=== PATIENT | female | born 1965 | race Caucasian/White ===

== ENCOUNTER 2019-04-18 17:46 | Emergency (ER) | payer BC, SELFPAY ==
--- NOTE | 2019-04-18 17:50 | ED.GENADULT ---
HPI - General Adult General Chief complaint: Upper Respiratory Infection Stated complaint: BREWER/CONGESTED/COUGH Time Seen by Provider: 04/18/19 18:01 Source: patient Mode of arrival: ambulatory Limitations: no limitations History of Present Illness HPI narrative: 53-year-old female patient presents to the [facility] with complaints of cold symptoms for the past 2 days. Patient states that she did not get a flu shot this year. Patient states she has had a cough and coughing up some clear and yellow sputum. Patient states she has been very congested to the nose. Denies any fevers that she is aware of. Patient states she has been taking [id number] Mucinex and Advil for her symptoms. Patient denies any chest pain or shortness of breath at this time. Related Data Home Medications Medication Instructions Recorded Confirmed amlodipine 5 mg PO DAILY 04/18/19 04/18/19 metoprolol tartrate 50 mg PO DAILY 04/18/19 04/18/19 triamterene-hydrochlorothiazid 1 tablet PO DAILY 04/18/19 04/18/19 Allergies Allergy/AdvReac Type Severity Reaction Status Date / Time silver nitrate Allergy Intermediate Verified 04/20/16 18:47 Sulfa (Sulfonamide Allergy Intermediate Verified 04/20/16 18:47 Antibiotics) azithromycin Allergy Unknown SWELLING Verified 04/20/16 18:47 AND RASH Penicillins Allergy Unknown RESP. Verified 04/20/16 18:47 DISTRESS SURGICAL GLUE Allergy Mild Uncoded 08/16/13 12:48 Review of Systems Review of Systems: Narrative: CONSTITUTIONAL: Denies fever, chills, or sweats. EYES: Denies visual changes, redness, or discharge. ENT: Positive rhinorrhea, congestion, denies sore throat, or otalgia. CARDIOVASCULAR: Denies chest pain, palpitations, or edema. RESPIRATORY: Positive cough, denies dyspnea. GASTROINTESTINAL: Denies abdominal pain, nausea, vomiting, or diarrhea. GENITOURINARY: Denies dysuria or hematuria. SKIN: Denies rash or itching. MUSCULOSKELETAL: Denies back pain, joint pain, or myalgia. NEUROLOGIC: Positive headache, numbness, or weakness. PSYCHIATRIC: Denies anxiety or depression. [facility] Past Medical History Medical History (Updated 04/18/19 @ 18:11 by MARIA LUISA Mckee) Hypertension Surgical History Surgical History (Updated 04/18/19 @ 17:52 by KELSEA Mckee H/O Spinal surgery C6 and C7 fusion H/O: hysterectomy Comments At the time of my signature I agree with nursing past medical history, surgical, social, and family history. There is no relevant family history pertinent to the presenting complaint. Exam Narrative: Exam Narrative: GENERAL: Well-appearing, well-nourished, and in no acute distress. HEAD: Normocephalic, atraumatic. Slight tenderness noted to maxillary sinuses on palpation. EYES: PERRLA and EOMI. ENT: Nares with erythema and edema noted bilaterally with the right nare swollen shut., no rhinorrhea or epistaxis. Mucous membranes moist. Posterior pharynx with no erythema, tonsillar margin, exudates or lesions present. Bilateral TMs are clear no erythema or foreign bodies in the canal. There is slight fluid noted behind the right TM. NECK: Supple. No lymphadenopathy CHEST: Clear to auscultation. No respiratory distress. Patient able talk in clear complete sentences. No tripoding noted. HEART: Regular rate and rhythm. No murmur heard. Normal peripheral pulses. ABDOMEN: Soft, nontender, nondistended, normal active bowel sounds. EXTREMITIES: Normal range of motion. No edema. SKIN: Warm, dry, no rash. NEURO: No focal deficits. Alert and oriented x3. Course Reevaluation(s) Reevaluation #1: Notify patient she has negative today for influenza. Discussed with her that this does appear to be some sinus drainage is most likely viral since she is only had this for about 2 days. Discussed with her that she needs to try some symptomatic treatment including nasal steroid, daily antihistamine and Tessalon Perles that were prescribed to her today. Discussed with patient
[2019-04-18 18:01] VITALS: BP 150/82; PULSE 78; RESP 20; TEMP 37.5; O2SAT 100
== END 2019-04-18 18:14 | disposition home or self-care (01) ==
PROVIDERS: Emergency Provider Nurse Practitioner Family; PCP Internal Medicine
DX: J06.9 Acute upper respiratory infection, unspecified (principal); R05 Cough; I10 Essential (primary) hypertension; I20.9 Angina pectoris, unspecified
CPT/HCPCS: 87804; 99213; G0463

== ENCOUNTER → 2020-06-16 08:05 | Outpatient (REF) | payer BC, SELFPAY | LOC: ANHLAB 08:05 | PROVIDERS: PCP Internal Medicine; Visit Provider Nurse Practitioner | DX: C44.02 Squamous cell carcinoma of skin of lip (principal) | CPT/HCPCS: 88305; 88331 ==

== ENCOUNTER 2023-05-07 00:23 | Emergency (ER) | payer BC, SELFPAY ==
[2023-05-07] VITALS (28 sets, daily range): BP systolic 106–173; BP diastolic 55–110; PULSE 65–102; RESP 12–21; TEMP 37.1; O2SAT 92–99
--- NOTE | ~2023-05-07 | XR_ITS ---
EXAMINATION: XR chest 1V portable DATE: 05/07/2023 00:35 INDICATION: Right chest pain. TECHNIQUE: A single frontal view of the chest was obtained. COMPARISON: None. FINDINGS: There is no pneumonia, pleural effusion, or pneumothorax. The heart size is normal. There a re changes of anterior fusion procedure in cervical spine. IMPRESSION: 1. No acute cardiopulmonary disease. Reviewed, dictated and finalized at location A. RACT MAKER
--- NOTE | 2023-05-07 00:27 | ECG_ITS ---
Measurements Intervals [place] Rate: 96 P: 42 CA: 136 QRS: -5 QRSD: 158 T: 113 QT: 388 QTc: 492 Interpretive Statements SINUS RHYTHM POSSIBLE LEFT ATRIAL ENLARGEMENT LEFT BUNDLE BRANCH BLOCK BASELINE ARTIFACT- I, II, III, AVL ABNORMAL ECG NO PREVIOUS ECG AVAILABLE FOR COMPARISON Electronically Signed On 05-07-2023 9:02:44 FINAL INSPECTION SUPERVISOR by Holger Riggs D.O.
[2023-05-07 00:42] LABS: Basophils Percent Auto 0.4 % (0.2-1.2); Eosinophils Absolute Auto 0.1 K/mm3 (0-0.3); Eosinophils Percent Auto 0.7 % (0-4.4); Hematocrit 37.6 % (37.0-47.0); Hemoglobin 11.6 g/dL (12.0-15.0); Immature Granulocyte Absolute 0.05 K/mm3 (0.00-0.031); Immature Granulocyte Percent A 0.5 % (0-0.5); Immature Platelet Fraction Pct 5.5 % (0.9-11.2); Lymphocytes Absolute Auto 3.13 K/mm3 (0.9-3.2); Lymphocytes Percent Auto 33.3 % (18.3-44.2); Mean Corpuscular HGB Conc 30.9 g/dl (32-36); Mean Corpuscular Hemoglobin 19.5 pg (26-34); Mean Corpuscular Volume 63.1 fl (80-100); Monocytes Absolute Auto 0.5 K/mm3 (0.1-0.6); Monocytes Percent Auto 5.5 % (2.6-8.5); Neutrophils Absolute Auto 5.6 K/mm3 (1.3-6.7); Neutrophils Percent Auto 59.6 % (45.5-73.1); Platelet Count Result 169 k/mm3 (150-375); Red Blood Count 5.96 M/mm3 (4.2-5.4); Red Cell Distribution Width 17.6 % (11.5-14.5); White Blood Count 9.4 K/mm3 (4.5-10.0)
[2023-05-07 00:48] LABS: Alanine Aminotransferase 29 U/L (6-35); Albumin Level 4.6 g/dL (3.5-5.1); Alkaline Phosphatase 107 U/L (38-126); Anion Gap 10 mmol/L (8-16); Aspartate Amino Transferase 33 U/L (14-36); Bilirubin,Total 1.2 mg/dL (0.2-1.3); Blood Urea Nitrogen 15 mg/dL (7-17); Calcium 9.3 mg/dL (8.4-10.2); Carbon Dioxide 24 mmol/L (22-30); Chloride 105 mmol/L (98-107); Estimated CRCL calculation 83 ml/min; Estimated Glomerular Filt Rate > 60; Glucose 142 mg/dL (65-110); Lipase 191 U/L (23-300); Potassium 3.5 mmol/L (3.4-5.0); Sodium 139 mmol/L (137-145)
[2023-05-07] MEDS: ONDANSETRON INJ 4 MG/2 ML VIAL IV PUSH (00:50)
[2023-05-07] MEDS: NITROGLYCERIN SL 0.4 MG TABLET SUBLINGUAL (00:50)
[2023-05-07] MEDS: MORPHINE SULFATE (*CRX) 4 MG/ML INJ IV PUSH ×2 (00:51→01:23)
--- NOTE | 2023-05-07 00:52 | PC.NURSE ---
0049 patient given first nitro, CP /10, BP: 149/83, P:118, RR: 22, and SPO2 96% NC 2L/min 0054 CP /, BP:147/80 , P: 112, RR: 18, SPO2 96% NC 2L/min
[2023-05-07 01:00] LABS: Troponin I < 0.012 ng/mL (0.000-0.034)
[2023-05-07 01:06] LABS: Prothrombin Time 13.7 Seconds (11.1-14.7)
[2023-05-07 01:07] LABS: Partial Thromboplastin Time 33.8 SECONDS (22.3-36.8)
[2023-05-07 01:22] LABS: Microcytosis 2+ (NORMAL); Tear Drop Cells 2+ (NORMAL)
[2023-05-07 01:23] LABS: Schistocytes Rare (NORMAL)
[2023-05-07] MEDS: NITROGLYCERIN OINTMENT 1 INCH DOSE TRANSDERM (01:24)
[2023-05-07 01:41] LABS: Platelet Estimate Adequate (Adequate)
--- NOTE | 2023-05-07 03:16 | ECG_ITS ---
Measurements Intervals [place] Rate: 77 P: 48 ND: 161 QRS: -16 QRSD: 153 T: 97 QT: 443 QTc: 501 Interpretive Statements SINUS RHYTHM POSSIBLE LEFT ATRIAL ENLARGEMENT LEFT BUNDLE BRANCH BLOCK BASELINE ARTIFACT- I, III, AVL ABNORMAL ECG COMPARED TO ECG 05/07/2023 00:25:46 NO SIGNIFICANT CHANGES Electronically Signed On 05-07-2023 9:06:22 NURSE INTERN by Holger Riggs D.O.
--- NOTE | 2023-05-07 03:35 | ED.GENADULT ---
HPI - General Adult General Chief complaint: Chest Pain Stated complaint: Right sided cp, sob Time Seen by Provider: 05/07/23 00:32 History of Present Illness HPI narrative: Patient is a 57-year-old female who presents emergency department with chief complaint of chest pain and shortness of breath. The patient states that she has had some sinus issues and reports that around 11:30 pm started feeling nausea patient reports she has history of leaky valve and history of an abnormal EKG. Related Data Home Medications Medication Instructions Recorded Confirmed amlodipine 5 mg tablet 5 mg PO DAILY 04/18/19 04/18/19 triamterene 37.5 1 tablet PO DAILY 04/18/19 04/18/19 mg-hydrochlorothiazide 25 mg tablet metoprolol tartrate 50 mg tablet 50 mg PO BID 06/16/20 Allergies Allergy/AdvReac Type Severity Reaction Status Date / Time azithromycin Allergy Severe Swelling Verified 06/16/20 08:02 of Lip/Tongue/Throat Penicillins Allergy Severe Swelling Verified 06/16/20 08:02 of Lip/Tongue/Throat silver nitrate Allergy Intermediate Other Verified 06/16/20 08:02 Sulfa (Sulfonamide Allergy Intermediate Hives Verified 06/16/20 08:02 Antibiotics) SURGICAL GLUE Allergy Mild Swelling Uncoded 06/16/20 08:02 Review of Systems Review of Systems: A 10 system review of systems was completed on the patient and is negative except for what is stated in the HPI. Nursing and ancillary documentation was reviewed. [facility] Past Medical History Medical History Hypertension Surgical History Surgical History H/O Spinal surgery C6 and C7 fusion H/O: hysterectomy Social History Social History Smoking status: Never smoker Alcohol intake: never Substance use: never Substance use type: does not use Exam Narrative: GENERAL: Well-appearing, well-nourished, and in no acute distress. HEAD: Normocephalic, atraumatic. EYES: PERRLA and EOMI. ENT: Nares clear, no rhinorrhea or epistaxis. Mucous membranes moist. NECK: Supple. CHEST: Clear to auscultation. No respiratory distress. HEART: Regular rate and rhythm. No murmur heard. Normal peripheral pulses. ABDOMEN: Soft, nontender, nondistended, normal active bowel sounds. EXTREMITIES: Normal range of motion. No edema. SKIN: Warm, dry, no rash. NEURO: No focal deficits. Alert and oriented x3. PSYCH: Normal mood and affect. Course Vital Signs Vital signs: Vital Signs Temperature 37.1 C 05/07/23 00:21 Pulse Rate 98 05/07/23 00:21 Respiratory Rate 13 05/07/23 00:21 Blood Pressure 173/110 H 05/07/23 00:21 Pulse Oximetry 98 05/07/23 00:21 Oxygen Delivery Nasal Cannula 05/07/23 00:21 Oxygen Flow Rate 2 05/07/23 00:21 Temperature 37.1 C 05/07/23 00:21 Pulse Rate 65 05/07/23 05:02 Respiratory Rate 12 05/07/23 05:02 Blood Pressure 122/62 05/07/23 05:02 Pulse Oximetry 94 05/07/23 05:02 Oxygen Delivery Nasal Cannula 05/07/23 00:33 Oxygen Flow Rate 2 05/07/23 00:33 Medical Decision Making [facility] Narrative Medical decision making narrative: Differential diagnosis includes ACS, pneumothorax, esophageal spasm, hypertensive urgency, EKG showed left bundle-branch block prior records were obtained from [facility] and the patient has a known left bundle branch block. White blood cell count was 9.4 electrolytes were within normal limits liver enzymes are normal lipase was normal troponin was negative and 0 hour and 3 hours. Chest x-ray showed no evidence of focal infiltrate Patient is feeling much better at this point and patient be discharged home follow up with her primary auger press operator Vital Signs Vital Signs: Vital Signs Temperature 37.1 C 05/07/23 00:21 Pulse Rate 98 05/07/23 00:21 Respiratory Rate 13
[2023-05-07 03:53] LABS: Troponin I < 0.012 ng/mL (0.000-0.034)
== END 2023-05-07 05:49 | disposition home or self-care (01) ==
PROVIDERS: Emergency Provider Emergency Medicine
DX: R07.89 Other chest pain (principal); I10 Essential (primary) hypertension; Z98.1 Arthrodesis status; Z90.710 Acquired absence of both cervix and uterus; I44.7 Left bundle-branch block, unspecified; R94.31 Abnormal electrocardiogram [ECG] [EKG]
CPT/HCPCS: 36415; 71045; 80053; 83690; 84484; 85025; 85055; 85610; 85730; 93005; 96374; 96375; 96376; 99284; A9270; J2270; J2405

== ENCOUNTER 2023-05-09 15:51 | Emergency (ER) | payer BC, SELFPAY ==
[2023-05-09 15:56] VITALS: BP 143/74; PULSE 73; RESP 16; TEMP 36.6; O2SAT 99
--- NOTE | 2023-05-09 16:01 | ED.URI ---
HPI - URI/Sore Throat General Chief Complaint: Upper Respiratory Infection Stated Complaint: Sore Throat, Headache, Fever, Cough, Congestion Time Seen by Provider: 05/09/23 16:01 Source: patient, RN notes reviewed and old records reviewed Mode of arrival: ambulatory Limitations: no limitations History of Present Illness HPI Narrative: 57 year old female who presents to express care with complaints of sore throat, fever, cough and congestion, body aches, joints aches, ear pain which started on . Patient reports that annita had fevers 99-100F intermittently since also. Patient reports some nausea but denies any vomiting or diarrhea.Patient reports that she was in the Ed on Tuesday night with chest pains and elevated blood pressure dischargd with 'normal' results MD elicited complaint: fever, cough, sore throat and other (headache, body aches, ear pain) Onset (ago): day(s) (4-5 days) Pain scale (0-10): 3 Able to tolerate fluids by mouth: Yes Treatments prior to arrival: acetaminophen, ibuprofen and other (Theraflu and Ricola cough drops) Related Data Home Medications Medication Instructions Recorded Confirmed amlodipine 5 mg tablet 5 mg PO DAILY 04/18/19 05/09/23 triamterene 37.5 1 tablet PO DAILY 04/18/19 05/09/23 mg-hydrochlorothiazide 25 mg tablet metoprolol tartrate 50 mg tablet 50 mg PO BID 06/16/20 05/09/23 Allergies Allergy/AdvReac Type Severity Reaction Status Date / Time azithromycin Allergy Severe Swelling Verified 05/09/23 15:55 of Lip/Tongue/Throat Penicillins Allergy Severe Swelling Verified 05/09/23 15:55 of Lip/Tongue/Throat silver nitrate AdvReac Mild Hives Verified 05/09/23 15:55 Sulfa (Sulfonamide AdvReac Mild Hives Verified 05/09/23 15:55 Antibiotics) SURGICAL GLUE AdvReac Mild Hives Uncoded 05/09/23 15:55 Review of Systems Review of Systems: CONSTITUTIONAL:Reports malaise, chills, sweats, or fever. EYES: Denies visual changes, redness, or discharge. ENT: Reports rhinorrhea, congestion, sinus pain, otalgia and sore throat. CARDIOVASCULAR: Denies chest pain, palpitations, or edema. RESPIRATORY: Reports cough.? Denies dyspnea. GASTROINTESTINAL: Denies abdominal pain, reports nausea, no vomiting, diarrhea SKIN: Denies rash or itching. MUSCULOSKELETAL:Reports myalgia. NEUROLOGIC:Reports headache. All systems reviewed & are unremarkable except as noted in HPI and below PMFSH Past Medical History Medical History (Updated 05/10/23 @ 14:07 by Pari Ornelas NP) Angina pectoris syndrome Anxiety Beta-thalassemia Bronchitis Hypertension Surgical History Surgical History (Updated 05/10/23 @ 14:03 by Pari Ornelas NP) H/O Spinal surgery C6 and C7 fusion H/O: hysterectomy Hx of eye surgery as child Social History Social History Smoking status: Never smoker Alcohol intake: never Substance use: never Substance use type: does not use Comments At time of signature, agree with nursing past medical, surgical, social and family history. There is no relevant family history pertinent to the presenting complaint Exam Narrative: GENERAL: Well-appearing, well-nourished, and in no acute distress. HEAD: Normocephalic EYES: PERRLA, conjunctivae clear ENT: Nares clear, turbinates edematous and erythematous, clear discharge. Mucous membranes moist. TM pearly camacho with dull light reflex bilaterally; no tragal tenderness. Oropharynx erythematous without lesions. Tonsils not enlarged and without exudate, no drooling, no hoarseness, no trismus, uvula midline.post nasal drainage NECK: Supple. No lymphadenopathy CHEST: Clear to auscultation, breath sounds equal. No wheezing, rhonchi, rales, or stridor. No respiratory distress, speaks in full sentences.no tachypnea SAO2 99% on room air HEART: Regular rate and rhythm. No murmur heard. SKIN: Warm, dry, no rash.
== END 2023-05-09 16:39 | disposition home or self-care (01) ==
PROVIDERS: Emergency Provider Registered Nurse
DX: J06.9 Acute upper respiratory infection, unspecified (principal); Z20.822 Contact with and (suspected) exposure to COVID-19; I10 Essential (primary) hypertension; D56.1 Beta thalassemia
CPT/HCPCS: 87081; 87426; 87804; 87880; 99213; G0463

== ENCOUNTER 2024-05-22 17:54 | Emergency (ER) | payer BC, SELFPAY ==
--- NOTE | ~2024-05-22 | XR_ITS ---
Exam: Abdomen 1V HISTORY: right flank pain r/o kidney stone/constipation COMPARISON: None. TECHNIQUE: Supine images of the abdomen FINDINGS: Bowel gas pattern is non-obstructive. Fecal stasis within the ascending colon and rectum. There is no free air or deep sulci. No pathologic calcifications are seen. Bones and soft tissues are unremarkable. IMPRESSION: Nonspecific, nonobstructive bowel gas pattern. No pathologic calcifications are appreciated. Reviewed, dictated and finalized at location A.
--- NOTE | 2024-05-22 17:59 | ED.FEMALEGU ---
HPI - Female Genitourinary General Chief complaint: Urogenital-Female Stated complaint: possible UTI Time Seen by Provider: 05/22/24 18:05 Source: patient Mode of arrival: ambulatory Limitations: no limitations History of Present Illness HPI Narrative: Kusum is a 58-year-old female patient presenting to the clinic today with complaints of possible urinary tract infection x2 days. She reports she is having burning with urination, frequency, and flank pain bilaterally right worse than left thumb. States the pain is constant/achy. Currently rates her pain 7 at 10. Has had some associated diarrhea and nausea over the past week. No history of constipation. Has had history of kidney stones in the past. Last bowel movement was yesterday Related Data Home Medications ?Medication ?Instructions ?Recorded ?Confirmed ?Last Taken ?Type amlodipine 5 mg tablet 5 mg PO DAILY 04/18/19 05/09/23 Unknown History triamterene 37.5 1 tablet PO DAILY 04/18/19 05/09/23 Unknown History mg-hydrochlorothiazide 25 mg tablet metoprolol tartrate 50 mg tablet 50 mg PO BID 06/16/20 05/09/23 Unknown History Allergies Allergy/AdvReac Type Severity Reaction Status Date / Time azithromycin Allergy Severe Swelling Verified 05/22/24 18:10 of Lip/Tongue/Throat Penicillins Allergy Severe Swelling Verified 05/22/24 18:10 of Lip/Tongue/Throat silver nitrate AdvReac Mild Hives Verified 05/22/24 18:10 Sulfa (Sulfonamide AdvReac Mild Hives Verified 05/22/24 18:10 Antibiotics) SURGICAL GLUE AdvReac Mild Hives Uncoded 05/22/24 18:10 Review of Systems Review of Systems: Pertinent positives per HPI. Patient denies any fever, chills, rash, headache, visual changes, dizziness, cough, runny nose, sore throat, shortness of breath, chest pain, palpitations,vomiting, constipation PMFSH Past Medical History Medical History (Updated 05/22/24 @ 18:40 by Freedom Narayanan APRN) Bronchitis Beta-thalassemia Anxiety Angina pectoris syndrome Hypertension Surgical History Surgical History (Updated 05/10/23 @ 14:03 by Pari Ornelas NP) Hx of eye surgery as child H/O Spinal surgery C6 and C7 fusion H/O: hysterectomy Social History Social History Smoking status: Never smoker Alcohol intake: never Substance use: never Substance use type: does not use Comments At the time of my signature, I reviewed and agree with the nursing past medical, surgical, social, and family history. There is no relevant family history pertinent to the patient complaint. Exam Narrative: General: Well-developed, well nourished, in no apparent distress. Head: Normocephalic, atraumatic. Cardio: Regular rate and rhythm, s1 and s2 normal, no murmur appreciated. Resp: Clear to auscultation bilaterally, no rhonchi, rales, wheezing or rubs. Abdomen: Soft, pliable, bowel sounds present in all quadrants, non-tender to palpation, no organomegly, positive right CVAT tenderness. Course Course Emergency Course: Portions of this record may have been created with voice recognition software. Level of Care: Express Care Visit Vital Signs Vital signs: Vital Signs Temperature 36.7 C 05/22/24 18:03 Pulse Rate 97 05/22/24 18:03 Respiratory Rate 17 05/22/24 18:03 Blood Pressure 155/87 H 05/22/24 18:03 Pulse Oximetry 99 05/22/24 18:03 Oxygen Delivery Room Air 05/22/24 18:03 Temperature 36.7 C 05/22/24 18:03 Pulse Rate 97 05/22/24 18:03 Respiratory Rate 17 05/22/24 18:03 Blood Pressure 155/87 H 05/22/24 18:03 Pulse Oximetry 99 05/22/24 18:03 Oxygen Delivery Room Air 05/22/24 18:03 Vital signs reviewed MDM - Female Genitourinary MDM Narrative Medical decision making narrative: At the time of visit patient is resting comfortably on the exam table. Patient appears to be nontoxic. Labs: Urinalysis dip was completed and negative for any sign of leukocytes, blood, or protein. We will send urine for culture Diagnosis: KUB x-ray was performed shows no acute abdominal abnormality Plan: I suspect patient has UTI symptoms with some flank pain. Does have some stool in the ascending colon and in the rectum but no sign of constipation. Recommend trialing azo for her symptoms and we will send urine for culture. If the culture comes back positive we will contact the patient place her on some antibiotics at that time. If her symptoms worsen she should go the emergency room for further evaluation Supportive measures were discussed with the patient and they voiced understanding discharge instructions and agrees to treatment plan. Return precautions reviewed Differential Diagnosis Differential diagnosis: Likely urinary tract infection, cystitis and other (Pyelonephritis, ureterolithiasis) Lab Data Labs: Lab Results 05/22/24 Range/Units 18:09 POC Urine Color Yellow POC Urine Clarity Clear POC Urine pH 6.0 POC Ur Specif [place] 1.010 POC Urine Protein Negative (Negative) POC Ur Glucose (UA) Negative (Negative) POC Urine Ketones Negative (Negative) POC Urine Blood Negative (Negative) POC Urine Nitrite Negative (Negative) POC Urine Bilirubin Negative (Negative) POC Urine Urobilinogen 0.2 POC U Leukocyte Esteras Negative (Negative) Imaging Data Radiologist's impression: ITS Impressions Abdomen X-Ray 05/22/24 18:36 IMPRESSION: Nonspecific, nonobstructive bowel gas pattern. No pathologic calcifications are appreciated. Discharge Plan Discharge Clinical Impression: Symptoms of urinary tract infection, Acute flank pain Patient Disposition: Home, Self-Care Condition: Stable Instructions: Antibiotic Form, Urinary Tract Infection in Women (ED), Flank Pain (ED) Additional Instructions: Urinalysis was negative for any sign of infection. We will send urine for culture Abdominal x-rays negative for any acute abdomen pathology Increase fluids and stay well hydrated May take [id number] azo for UTI symptoms for the next 2 days. Wipe front to back. May use wet wipes. Avoid tub baths If sexually active- pee before and after intercourse. Wear cotton panties Avoid tight clothing up against the genitals Follow up with your PCP in 1 week if symptoms persist. Patient Language: Turkmen Prescriptions: No Action amlodipine 5 mg tablet 5 mg PO DAILY triamterene-hydrochlorothiazid 37.5-25 mg tablet 1 tablet PO DAILY metoprolol tartrate 50 mg tablet 50 mg PO BID Follow-up/Referrals: Wilian,Eduardo Garcia MD [Primary Care Provider] - Time of Disposition: 18:41 Quality NIH Nursing Documentation ED NIH nursing documentation: reviewed/agree
[2024-05-22 18:03] VITALS: BP 155/87; PULSE 97; RESP 17; TEMP 36.7; O2SAT 99
[2024-05-22 18:12] LABS: EDUAAPPEAR Clear; EDUABILI Negative (Negative); EDUABLOOD Negative (Negative); EDUACOLOR1 Yellow; EDUAGLUCOSE Negative (Negative); EDUAKETONE Negative (Negative); EDUALEUKO Negative (Negative); EDUANITRATE Negative (Negative); EDUAPROTEIN Negative (Negative); EDUAUROBILI 0.2
--- OUTSIDE RECORDS SUMMARY | 2024-05-22 18:13 | XMS_ITS | Clinical Summary ---
Author Organization [facility] [place] Address [address] [place] [address] Phone Care Team Providers Care Acoustical Carpenter Name Role Phone Unavailable Primary Care Provider Unavailabl e Allergies Active Allergy Reactions Criticality Noted Date Comments Azithromycin Hives High 01/23/2010 Penicillins Other (See Comments) 01/14/2010 Medications metoprolol succinate ER 24 hour (TOPROL XL) 25 mg Oral tablet Take 25 mg by mouth daily. Active TRIAMTERENE/HYDR OCHLOROTHIAZID (MAXZIDE ORAL) Take by mouth. Active NIACIN ORAL Take by mouth. Active 0mega-3 fatty acids-vitamin E (FISH OIL) 1,000 mg Oral Cap Take 1,000 mg by mouth. Active HYDROcodone-acet aminophen (NORCO) 5-325 mg Oral tablet Take 1 Tab by mouth every 4 hours as needed for Pain. 25 Tab 0 01/23/2010 Active Active Problems Patient Care Coordination No te Formatting of this note migh t be different from the original. 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 HTN (hypertension) Family History Medical History Relation Name Comments Prostate Cancer Father Heart Disease Maternal Grandmother Heart Disease Mother Other Mother diabetes Cancer Other kidney ca Relation Name Status Comments Father Maternal Grandmother Mother Other Alive Social History Tobacco Use Types Packs/Day Years Used Date Smoking Tobacco: Never Alcohol Use Standard Drinks/Week Comments No 0 (1 standard drink = 0.6 oz pur e alcohol) Comments Unknown Sex and Gender Information Value Date Recorded Sex Assigned at Not on file Legal Sex Female 5:57 AM [employer]CE [employer] Gender Identity Not on file Sexual Orientation Not on file Last Filed Vital Signs Vital Sign Reading Time Taken Comments Blood Pressure 119/60 01/23/2010 10:12 AM [employer] Pulse 75 01/23/2010 10:12 AM [employer] Temperature 37.1 C (98.7 F) 01/23/2010 9:35 AM [employer] Respiratory Rate 19 01/23/2010 10:12 AM [employer] MA[employer] Oxygen Saturation 97% 01/23/2010 10:12 AM [employer] MA[employer] HAND Inhaled Oxygen Concentration - - Weight 79.8 kg (176 lb) 01/23/2010 8:12 AM [employer] Height 158.8 cm (5' 2.5 ) 01/23/2010 8:12 AM [employer] MA[employer] Body Mass Index 31.68 01/23/2010 8:12 AM ONE [employer]CE [employer] MAK[employer] Plan of Treatment Health Maintenance Due Date Last Done Comments DTAP/TDAP/TD VACCINES (1 - Tdap) 12/02/1986 HEPATITIS B VACCINES (1 of 3 - 19+ 3-dose series) 12/02/1986 CERVICAL CANCER SCREENING 12/02/1997 BREAST CANCER SCREENING 01/08/2011 01/09/20 10, 12/27/2009 COLORECTAL SCREENING 12/02/2012 Colorectal Cancer Screening 12/02/2012 FIT-DNA Q 3 years 12/02/2012 FIT/FOBT Q 1 year 12/02/2012 Flex Sig/CT Colonography Q 5 years 12/02/2012 ZOSTER VACCINE (1 of 2) 12/02/2017 INFLUENZA VACCINE (#1) 2023 PNEUMOCOCCAL VACCINE 0-49 YEARS Aged Out No longer eligible b ased on patient's age to complete this topic Procedures Procedure Name Priority Date/Time Associated Diagnosis Comments MAMMO DIAGNOSTIC UNI RIGHT W OR WO CAD Routine 01/08/2010 from Last 3 Months or Most Recently Relevant to Health Maintenance Results * MAMMO DIGITAL DIAG UNI RIGHT (01/08/2010) Anatomical Region Laterality Modality Breast Right Other us Abstract Provider MAMMO ORDERABLES Final Result from Last 3 Months or Most Recently Relevant to Health Maintenance Insurance Advance Directives For more information, please contact: [phone] * Full Code (Latest Code Status on File) Date Activated Date Inactivated Comments 01/23/2010 8:11 AM 01/23/2010 1:03 PM
--- OUTSIDE RECORDS SUMMARY | 2024-05-22 18:13 | XMS_ITS | Encounter Summary ---
Author Organization [facility] Address [address] [place] [address] Care Team Providers Care Brazing Furnace Feeder Name Role Phone Magda Kincaid MD Primary Care Provider [phone] Encounter Details Date Type Department Care Team (Late st Contact Info) Description 09/05/2019 Lab Requisition [facility] DermPath Lab [address] [facility] [place] [address] Dylon Owen MD [address] [place] [address] Social History Tobacco Use Types Packs/Day Years Used Date Smoking Tobacco: Never Assessed Sex and Gender Information Value Date Recorded Sex Assigned at Not on file Gender Identity Not on file Sexual Orientation Not on file documented as of this encounter Plan of Treatment Not on file documented as of this encounter Procedures Procedure Name Priority Date/Time Associated Diagnosis Comments DERMATOPATHOLOGY Routine 09/04/2019 12:0 0 AM CDT documented in this encounter Results * DERMATOPATHOLOGY (09/04/2019 12:00 AM CDT) Case Report Dermatopathology Report Case: [id number] Authorizing Provider: Dylon Owen MD Collected: 09/04/2019 12:00 AM Ordering Location: [facility] Derm[facility] Lab Received: 09/05/2019 11:13 AM Pathologist: Artemio Daniel MD Specimen: Skin, left abd 0 2:19 PM CDT DERMATOPATHOLOGY LABORATORY Final Diagnosis Specimen A. SKIN, left abd: BASAL CELL CARCINOMA, PIGMENTED (C44.519) 0 2:19 PM CDT DERMATOPATHOLOGY LABORATORY Clinical History BCCA vs nevus. Path# [id number] 0 2:19 PM CDT DERMATOPATHOLOGY LABORATORY Gross Description Specimen A: Received is one formalin filled container labeled with the patient's name and designated left abd. The specimen consists of a shave biopsy measuring 9x6x1 mm. Jar 0. 0 2:19 PM CDT DERMATOPATHOLOGY LABORATORY Microscopic Description Specimen A. SKIN, left abd: There are aggregates of basaloid cells with a high nuclear to cytoplasmic ratio and peripheral palisading. There is abundant melanin. 0 2:19 PM CDT DERMATOPATHOLOGY LABORATORY Disclaimer An external and internal positive and negative controls are appropriate for the histochemical, immunohistochemical and immunofluorescence stain(s) in this case (if any), except where stated explicitly. The performance characteristics of the stain(s) cited in this report were developed and its performance characteristic determined by the Dermatopathology Laboratory at [facility], directed by Dr. Jose Miguel Daniel. These tests need not be, and therefore are not, approved by the [place] Food and Drug Administration. The tests are used for clinical purposes. Billing Codes Specimen Charges Stain Charges 31266 1 0 2:19 PM CDT DERMATOPATHOLOGY LABORATORY Embedded Images 0 2:19 PM CDT DERMATOPATHOLOGY LABORATORY Pathology/Cytolog y TISSUE SPECIMEN FROM SKIN / Unknown 09/04/2019 09/05/2019 11:13 AM CDT Dylon Owen MD LAB - PATHOLOGY/CYTO LOGY ORDERABLES DERMATOPATHOLOGY LABORATORY [facility] - Department of Dermatology [employer] [place] [address], [facility] [phone] documented in this encounter Visit Diagnoses Not on filedocumented in this encounter Care Teams Brazing Furnace Feeder Relationship Specialty Start Date End Date Magda Kincaid MD PCP - General 08/07/20 documented as of this encounter
--- OUTSIDE RECORDS SUMMARY | 2024-05-22 18:13 | XMS_ITS | Encounter Summary ---
Author Organization [facility] Address [address] [place] [address] Care Team Providers Care Assistant Boys Track Coach Name Role Phone Magda Kincaid MD Primary Care Provider [phone] Encounter Details Date Type Department Care Team (Late st Contact Info) Description 09/24/2019 Lab Requisition [facility] DermPath Lab [address] [facility] [place] [address] Dylon Owen MD [address] [place] [address] Social History Tobacco Use Types [...] Priority Date/Time Associated Diagnosis Comments DERMATOPATHOLOGY Routine 09/21/2019 12:0 0 AM CDT documented in this encounter Results * DERMATOPATHOLOGY (09/21/2019 12:00 AM CDT) Case Report Dermatopathology Report Case: [id number] Authorizing Provider: Dylon Owen MD Collected: 09/21/2019 12:00 AM Ordering Location: [facility] Derm[facility] Lab Received: 09/24/2019 06:26 AM Pathologist: Artemio Daniel MD Specimen: Skin, right buttock 0 3:10 PM CDT DERMATOPATHOLOGY LABORATORY Final Diagnosis Specimen A. SKIN, right buttock: BASAL CELL CARCINOMA, NODULAR TYPE (C44.712) 0 3:10 PM CDT DERMATOPATHOLOGY LABORATORY Clinical History BCCA vs SCCA. Path # [id number]. 0 3:10 PM CDT DERMATOPATHOLOGY LABORATORY Gross Description Specimen A: Received is one formalin filled container labeled with the patient's name and designated right buttock. The specimen consists of a shave biopsy measuring 0t4r5rh. Jar 0. 0 3:10 PM CDT DERMATOPATHOLOGY LABORATORY Microscopic Description Specimen A. SKIN, right buttock: Within the dermis there are aggregates of basaloid cells with a high nuclear to cytoplasmic ratio and peripheral palisading. 0 3:10 PM CDT DERMATOPATHOLOGY LABORATORY Disclaimer An external and internal positive and negative controls are appropriate for the histochemical, immunohistochemical and immunofluorescence stain(s) in this case (if any), except where stated explicitly. The performance characteristics of the stain(s) cited in this report were developed and its performance characteristic determined by the Dermatopathology Laboratory at [facility], directed by Dr. Jose Miguel Daniel. These tests need not be, and therefore are not, approved by the [place] Food and Drug Administration. The tests are used for clinical purposes. Billing Codes Specimen Charges Stain Charges 51775 1 0 3:10 PM CDT DERMATOPATHOLOGY LABORATORY Embedded Images 0 3:10 PM CDT DERMATOPATHOLOGY LABORATORY Pathology/Cytolog y TISSUE SPECIMEN FROM SKIN / Unknown 09/21/2019 09/24/2019 6:26 AM CDT Dylon Owen MD LAB - PATHOLOGY/CYTO LOGY ORDERABLES DERMATOPATHOLOGY LABORATORY [facility] - Department of Dermatology Instructional Coordinator Center/[address] [phone] documented in this encounter Visit Diagnoses Not on filedocumented in this encounter Care Teams Assistant Boys Track Coach Relationship Specialty Start Date End Date Magda Kincaid MD PCP - General 08/07/20 documented as of this encounter
--- OUTSIDE RECORDS SUMMARY | 2024-05-22 18:13 | XMS_ITS | Encounter Summary ---
Author Organization [facility] Address [address] [facility] [address] [facility] [place] [address] Care Team Providers Care Conservation Assistant Name Role Phone Magda Kincaid MD Primary Care Provider [phone] Encounter Details Date Type Department Care Team (Late st Contact Info) Description 03/24/[address] [facility] DermPath Lab [address] [facility] [place] [address] Dylon Owen MD [address] [place] [address] Social History Tobacco Use Types [...] Priority Date/Time Associated Diagnosis Comments DERMATOPATHOLOGY Routine 03/20/2021 12:0 0 AM RESIDENTIAL SALES REP documented in this encounter Results * DERMATOPATHOLOGY (03/20/2021 12:00 AM RESIDENTIAL SALES REP) Case Report Dermatopathology Report Case: [id number] Authorizing Provider: Dylon Owen MD Collected: 03/20/2021 12:00 AM Ordering Location: [facility] DermPath Lab Received: 03/24/2021 08:14 AM Pathologist: Yoselin Cesar MD Specimen: Skin, left bahai at hairline 5:15 PM RESIDENTIAL SALES REP DERMATOPATHOLOGY LABORATORY Final Diagnosis Specimen A. SKIN, left bahai at hairline: BENIGN VERRUCOUS KERATOSIS, INFLAMED (L82.1) (see microscopic description) 2 5:15 PM [facility] DERMATOPATHOLOGY LABORATORY Clinical History BCCA vs AK vs SCCA. Path# [id number]. 2 5:15 PM [facility] DERMATOPATHOLOGY LABORATORY Gross Description Specimen A: Received is one formalin filled container labeled with the patient's name and designated left bahai at hairline. The specimen consists of a shave biopsy measuring 1j3o9sp. Jar 0. 2 5:15 PM [facility] DERMATOPATHOLOGY LABORATORY Microscopic Description Specimen A. SKIN, left bahai at hairline: Sections show hyperkeratosis, papillomatosis, hypergranulosis, and acanthosis. There is epidermal spongiosis. Inflammatory cells are present within the dermis. Grocott's methenamine silver (GMS) stain fails to highlight fungal elements in the available sections. Additional deeper sections were obtained and reviewed. These histological findings can be seen in a verruca vulgaris or a seborrheic keratosis. 2 5:15 PM [facility] DERMATOPATHOLOGY LABORATORY Disclaimer An external and internal positive and negative controls are appropriate for the histochemical, immunohistochemical and immunofluorescence stain(s) in this case (if any), except where stated explicitly. The performance characteristics of the stain(s) cited in this report were developed and its performance characteristic determined by the Dermatopathology Laboratory at [facility], directed by Dr. Jose Miguel Daniel. These tests need not be, and therefore are not, approved by the [place] Food and Drug Administration. The tests are used for clinical purposes. Billing Codes Specimen Charges Stain Charges 04608 1 72228 1 2 5:15 PM [facility] DERMATOPATHOLOGY LABORATORY Embedded Images 2 5:15 PM [facility] DERMATOPATHOLOGY LABORATORY Pathology/Cytolog y TISSUE SPECIMEN FROM SKIN / Unknown 03/20/2021 03/24/2021 8:14 AM [facility] Dylon Owen MD LAB - PATHOLOGY/CYTO LOGY ORDERABLES DERMATOPATHOLOGY LABORATORY [facility] - Department of Dermatology [address] [phone] documented in this encounter Visit Diagnoses Not on filedocumented in this encounter Care Teams Conservation Assistant Relationship Specialty Start Date End Date Magda Kincaid MD PCP - General 08/07/20 documented as of this encounter
--- OUTSIDE RECORDS SUMMARY | 2024-05-22 18:13 | XMS_ITS | Encounter Summary ---
Author Organization [facility] Address [address] [facility] [place] [address] Care Team Providers Care Architectural Manager Name Role Phone Magda Kincaid MD Primary Care Provider [phone] Encounter Details Date Type Department Care Team (Late st Contact Info) Description 05/20/2020 Lab Requisition [facility] DermPath Lab [address] [facility] [place] [address] Dylon Owen MD [address] [place] [address] Social History Tobacco Use Types [...] Priority Date/Time Associated Diagnosis Comments DERMATOPATHOLOGY Routine 05/16/2020 3:33 AM CONTROLLER MECHANIC documented in this encounter Results * DERMATOPATHOLOGY (05/16/2020 3:33 AM CONTROLLER MECHANIC) Case Report Dermatopathology Report Case: [id number] Authorizing Provider: Dylon Owen MD Collected: 05/16/2020 03:33 AM Ordering Location: [facility] DermPath Lab Received: 05/20/2020 07:02 AM Pathologist: Yoselin Cesar MD Specimen: Skin, right upper lip 5:02 PM CDT DERMATOPATHOLOGY LABORATORY Final Diagnosis Specimen A. SKIN, right upper lip: SQUAMOUS CELL CARCINOMA IN SITU, PRESENT AT THE BASE OF THE SPECIMEN (D04.39) (see microscopic description and comment) 1 5:02 PM CDT DERMATOPATHOLOGY LABORATORY Clinical History SCCA vs AK. Path# [id number]. 1 5:02 PM CDT DERMATOPATHOLOGY LABORATORY Gross Description Specimen A: Received is one formalin filled container labeled with the patient's name and designated right upper lip. The specimen consists of a shave biopsy measuring 4s4k7fu. Jar 0. 1 5:02 PM CDT DERMATOPATHOLOGY LABORATORY Microscopic Description Specimen A. SKIN, right upper lip: The epidermis shows parakeratosis, full thickness disorderly maturation of keratinocytes, mitoses at different levels, and dyskeratotic cells. The lesion extends to the base of the biopsy. Additional deeper sections were obtained and reviewed. COMMENT: An invasive squamous cell carcinoma cannot be ruled out. 1 5:02 PM CDT DERMATOPATHOLOGY LABORATORY Disclaimer An external and internal positive and negative controls are appropriate for the histochemical, immunohistochemical and immunofluorescence stain(s) in this case (if any), except where stated explicitly. The performance characteristics of the stain(s) cited in this report were developed and its performance characteristic determined by the Dermatopathology Laboratory at [facility], directed by Dr. Jose Miguel Daniel. These tests need not be, and therefore are not, approved by the [place] Food and Drug Administration. The tests are used for clinical purposes. Billing Codes Specimen Charges Stain Charges 32701 1 1 5:02 PM CDT DERMATOPATHOLOGY LABORATORY Embedded Images 1 5:02 PM CDT DERMATOPATHOLOGY LABORATORY Pathology/Cytolo gy TISSUE SPECIMEN FROM SKIN / Unknown 05/16/2020 3:33 AM CONTROLLER MECHANIC 05/20/2020 7:02 AM CDT Dylon Owen MD LAB - PATHOLOGY/CYTO LOGY ORDERABLES DERMATOPATHOLOGY LABORATORY [facility] - Department of Dermatology [address] [phone] documented in this encounter Visit Diagnoses Not on filedocumented in this encounter Care Teams Architectural Manager Relationship Specialty Start Date End Date Magda Kincaid MD PCP - General 08/07/20 documented as of this encounter
--- OUTSIDE RECORDS SUMMARY | 2024-05-22 18:13 | XMS_ITS | Clinical Summary ---
Author Organization [facility] Address [address] [place] [address] Care Team Providers Care Inspector Metal Can Name Role Phone Magda Kincaid MD Primary Care Provider Source Comments [facility],non-owned Affiliates and Associated Physician Practices is amultiple site organization consisting of ambulatory clinics and hospital sitesin [place], [place], [place] and [place]. This disclosure is being madepursuant to the Care Everywhere program and may not contain all information available regarding this patient. Last updated 17.[facility] Social History Tobacco Use Types Packs/Day Years Used Date Smoking Tobacco: Never Assessed Sex and Gender Information Value Date Recorded Sex Assigned at Not on file Gender Identity Not on file Sexual Orientation Not on file Plan of Treatment Health Maintenance Due Date Last Done Comments COLOGUARD (AGES 45-75) - COL ON CA SCREENING 1967 COLON MONITORING 1967 COLONOSCOPY - COLON CA SCREENING 1967 CT COLONOGRAPHY - COLON CA SCREENING 1967 Colorectal Cancer Screening 1967 FIT - COLON CA SCREENING 1967 FLEX SIG - COLON CA SCREENING 1967 LIPID TESTING 1967 MAMMOGRAM 1967 PAP SMEAR 1967 HIV SCREENING 12/02/1982 HEPATITIS C SCREENING 11/28/1985 DTAP/TDAP/TD VACCINES (1 - Tdap) 12/02/1986 HEPATITIS B VACCINE (1 of 3 - 19+ 3-dose series) 12/02/1986 PNEUMOCOCCAL VACCINE 50+ (1 of 1 - PCV) 12/02/2017 ZOSTER VACCINE (1 of 2) 12/02/2017 COVID-19 VACCINE ( - 2023-2 5 season) 2023 INFLUENZA VACCINE (#1) 2023 DEPRESSION SCREENING 03/07/2024 HIB VACCINE Aged Out No longer eligi ble based on patient's age to complete this topic HPV VACCINE Aged Out No longer eligi ble based on patient's age to complete this topic MENINGOCOCCAL (Group B) VACC INE SHARED DECISION-MAKING Aged Out No longer eligibl e based on patient's age to complete this topic MENINGOCOCCAL GROUPS A/C/Y/W VACCINE Aged Out No longer eligible b ased on patient's age to complete this topic PNEUMOCOCCAL VACCINE Aged Out No long er eligible based on patient's age to complete this topic Care Teams Inspector Metal Can Relationship Specialty Start Date End Date Magda Kincaid MD PCP - General 08/07/20
--- OUTSIDE RECORDS SUMMARY | 2024-05-22 18:13 | XMS_ITS | Encounter Summary ---
Author Organization [facility] Address [address] [place] [address] Care Team Providers Care Peanut Blancher Name Role Phone Magda Kincaid MD Primary Care Provider [phone] Encounter Details Date Type Department Care Team (Late st Contact Info) Description 10/29/2019 Lab Requisition [facility] [address] [facility] [place] [address] Dylon Owen MD [address] [place] [address] Social History Tobacco Use Types [...] Priority Date/Time Associated Diagnosis Comments DERMATOPATHOLOGY Routine 10/25/2019 12:0 0 AM CDT documented in this encounter Results * DERMATOPATHOLOGY (10/25/2019 12:00 AM CDT) Case Report Dermatopathology Report Case: [id number] Authorizing Provider: Dylon Owen MD Collected: 10/25/2019 12:00 AM Ordering Location: [facility] Received: 10/29/2019 06:32 AM Pathologist: Artemio Daniel MD Specimen: Skin, left abd 0 4:51 PM CDT DERMATOPATHOLOGY LABORATORY Final Diagnosis Specimen A. SKIN, left abd: BASAL CELL CARCINOMA (C44.519) NOT PRESENT AT MARGIN DERMAL SCAR (L90.5) 0 4:51 PM CDT DERMATOPATHOLOGY LABORATORY Clinical History Bx proven pigmented BCCA. Path # [id number]. Check margins. 0 4:51 PM CDT DERMATOPATHOLOGY LABORATORY Gross Description Specimen A: Received is one formalin filled container labeled with the patient's name and designated left abd. The specimen consists of a non-oriented ellipse of skin measuring [id number]. The epidermal surface is unremarkable. The margin is inked green. The 12 o'clock and 6 o'clock tips are submitted in cassette 1. The remainder of the ellipse is serially sectioned and submitted in cassettes 2-3. Jar 0. 0 4:51 PM CDT DERMATOPATHOLOGY LABORATORY Microscopic Description Specimen A. SKIN, left abd: Within the dermis there are aggregates of basaloid cells with a high nuclear to cytoplasmic ratio and peripheral palisading. This lesion is not present at the margin of the specimen. There are fibroblasts and collagen bundles oriented parallel to the skin surface with elongated blood vessels, some of which are oriented perpendicular to the skin surface. 0 4:51 PM CDT DERMATOPATHOLOGY LABORATORY Disclaimer An external and internal positive and negative controls are appropriate for the histochemical, immunohistochemical and immunofluorescence stain(s) in this case (if any), except where stated explicitly. The performance characteristics of the stain(s) cited in this report were developed and its performance characteristic determined by the Dermatopathology Laboratory at [facility], directed by Dr. Jose Miguel Daniel. These tests need not be, and therefore are not, approved by the [place] Food and Drug Administration. The tests are used for clinical purposes. Billing Codes Specimen Charges Stain Charges 20975 1 0 4:51 PM CDT DERMATOPATHOLOGY LABORATORY Embedded Images 0 4:51 PM CDT DERMATOPATHOLOGY LABORATORY Pathology/Cytolog y TISSUE SPECIMEN FROM SKIN / Unknown 10/25/2019 10/29/2019 6:32 AM CDT Dylon Owen MD LAB - PATHOLOGY/CYTO LOGY ORDERABLES DERMATOPATHOLOGY LABORATORY [facility] - Department of Dermatology Geothermal Heat Pump Machinist [place]/[address] [phone] documented in this encounter Visit Diagnoses Not on filedocumented in this encounter Care Teams Peanut Blancher Relationship Specialty Start Date End Date Magda Kincaid MD PCP - General 08/07/20 documented as of this encounter
== END 2024-05-22 18:49 | disposition home or self-care (01) ==
PROVIDERS: Emergency Provider Nurse Practitioner Family; PCP Family Medicine
DX: R30.0 Dysuria (principal); R35.0 Frequency of micturition; R10.9 Unspecified abdominal pain; I10 Essential (primary) hypertension; I20.9 Angina pectoris, unspecified; D56.1 Beta thalassemia
CPT/HCPCS: 74018; 81003; 87086; 99213; G0463